=== PATIENT | female | born 1975 | race Asian ===

== ENCOUNTER 2018-01-17 07:12 | Emergency (ER) | payer BC ==
[2018-01-17] MEDS ORDERED: Aspirin 81 mg CHEW TAB* 81 MG TAB.CHEW ONE (07:20)
--- NOTE | 2018-01-17 07:21 | UC ---
Dizzy HPI HPI Summary: I, Thelma Castaneda, scribed for attending Adrianne Lopez MD. Pt is a 42 y/o F who presents to [facility] c/o sudden onset dizziness. Five miles into her bike ride this morning she started to feel like crap and felt like I was going to black out. Once symptoms began, she got off the bike and laid down. Reports that she felt dizzy and is unable to describe the sensation. She is unsure if dizziness is changed by closing her eyes. States that at onset her neck also became stiff. Additionally c/o slight nausea and numbness/tingling in the bilateral hands. Negative CP, sob, abd pain. No nausea, no diaphoresis, no back pain. Reports that she had a handful of cereal this morning prior to her bike ride which is typical and that 5 miles is routine and not uncharacteristically far for her. She had not just biked up a hill prior to onset of symptoms and she has not had any prior similar episodes. Had a stress test many years ago. Pt is on simvastatin. No anticoagulants. BG 172 upon arrival. PMHx HLD, depression, seasonal allergies. Negative PMHx HTN, DM, SD, CVA. - History Of Current Complaint Stated Complaint: DIZZY Time Seen by Provider: 01/17/18 07:15 Hx Obtained From: Patient Hx Last Menstrual Period: 20 days ago. Onset/Duration: Sudden Onset Character: Unable To Describe - "like I was going to black out" Aggravating Factor(s): Nothing Alleviating Factor(s): Nothing Associated Signs And Symptoms: Positive: Nausea - Allergies/Home Medications Allergies/Adverse Reactions: Allergies Allergy/AdvReac Type Severity Reaction Status Date / Time No Known Allergies Allergy Verified 12/18/16 09:26 PMH/Surg Hx/FS Hx/Imm Hx - Additional Past Medical History Additional PMH: NEGATIVE PMHx: SD, CVA, TIA, DM Endocrine History: Dyslipidemia Respiratory History: Other Other Respiratory History: Seasonal allergies Psychological History: Depression Other History Of: Negative For: HIV, Hepatitis B, Hepatitis C, Anticoagulant Therapy - Surgical History Surgical History: Yes Surgery Procedure, Year, and Place: fibroid myomectomy; wisdom teeth - Family History Known Family History: Positive: Cardiac Disease, Hypertension, Diabetes - Social History Alcohol Use: Occasionally Alcohol Amount: 1/week Substance Use Type: None Smoking Status (MU): Never Smoked Tobacco Have You Smoked in the Last Year: No Review of Systems Constitutional: Negative Skin: Negative Eyes: Negative ENT: Negative Respiratory: Negative Cardiovascular: Negative Gastrointestinal: Nausea Genitourinary: Negative Motor: Negative Neurovascular: Negative Musculoskeletal: Other: - Neck stiffness Neurological: Paresthesia - Bilateral hands, Other - Dizziness Psychological: Negative All Other Systems Reviewed And Are Negative: Yes - Comments Additional Review of Systems Comments: NEGATIVE: CP Physical Exam - Summary Physical Exam Summary: Vital Signs Reviewed: Yes A+Ox3, Eyes: Conjunctiva Clear, BUSHRA. EOM intact and full ENT: Hearing grossly normal TM x 2 clear, mmoist, uvula midline, no exudate, no erythema Neck: Positive: Supple Respiratory: Positive: No respiratory distress, No accessory muscle use + CTA throughout no w/r Cardiovascular: RRR nl s1, s2 no m/r CBT <2 sec abd soft + BS nt/nd no guarding, no distension Musculoskeletal Exam: CARLSON spontanesously Neurological: Positive: Alert, + sensation throughout. Pt with adrenaline tremors Psychological: Positive: Normal Response To Family, mild anxious, at bedside Skin: Positive: no rash, no ecchymosis Triage Information Reviewed: Yes Diagnostics - EKG EKG Comments: Done at 0711 ST elevations in the inferior leads with reciprocal T wave changes in aVL Cardiac Rate: NL - 69 bpm Cardiac Rhythm: Sinus: Normal Dizzy Course/Dx - Course Course Of Treatment: Patient medications reviewed this visit. Critical care time 30 minutes. Pt presents feeling lightheadedness while biking today. Pt denies chest pain, shortness of breath, diaphoresis. h/x hld and depression. Pt developed tremors in ext x 4 at - suspect related to adrenaline. Pt with acute ST changes on EKG. Verdi called, STEMI alert roper operator. Pt given ASA. IV placed. BG 173. 1 liter. pt's at bedside - updated and aware. pt's requested I contact Dr Ibarra - personal friend - Dr. Bedoya notified as Dr. Ibarra not assembler convertible top and office not open - Differential Dx/Diagnosis Provider Diagnoses: STEMI. dizziness - Physician Notifications Discussed Patient Care With: 07 - Dr. Monroy in ED; STEMI alert at hog operator Discharge - Sign-Out/Discharge Documenting (check all that apply): Patient Departure - Transfer to [facility] - Discharge Plan Condition: Good Disposition: TRANS HIGHER LVL OF CARE FAC - Billing Disposition and Condition Condition: GOOD Disposition: Trans Higher Lvl of Care Fac
[2018-01-17] MEDS ORDERED: Aspirin 81 mg CHEW TAB* 81 MG TAB.CHEW PO ONE (07:25)
[2018-01-17 07:49] VITALS: BP 97/56
[2018-01-17] MEDS ORDERED: Heparin 2 UNITS/ML IVPREMIX* 1,000 ML IV ONE (08:54)
== END 2018-01-17 07:40 | disposition short-term general hospital (02) ==
LOC: UCEAST 07:12 → CHICATH 07:57
DX: I21.3 ST elevation (STEMI) myocardial infarction of unspecified site (principal); R42 Dizziness and giddiness; E78.5 Hyperlipidemia, unspecified; F32.9 Major depressive disorder, single episode, unspecified
CPT/HCPCS: 93005; 99204; A9270-GY; G0463; J1644

== ENCOUNTER 2018-01-17 07:59 | Inpatient (IN) | payer BC ==
[~2018-01-17 07:59] MED LIST: Heparin 2 UNITS/ML IVPREMIX* 3,000 ML IV ONE; Iohexol 350 (CONTRAST) 200 ML MDV IV ONE; Lidocaine 1%* 5 ML VIAL ONE; nitroGLYCERIN DRIP* 25,000 MCG/250 ML BTL ONE
[2018-01-17] MEDS ORDERED: Midazolam* 1 MG/ML 10 ML VIAL (10 MG) ONE (08:23)
[2018-01-17] MEDS ORDERED: Lidocaine 1%* 5 ML VIAL ONE (08:28)
[2018-01-17 08:46] LABS: ABS Basophils 0.1 10^3/ul (0-0.2); ABS Eosinophils 0.1 10^3/ul (0-0.6); ABS Lymphocytes 1.8 10^3/ul (1.0-4.8); ABS Monocytes 0.7 10^3/ul (0-0.8); ABS Neutrophils 9.5 10^3/ul (1.5-7.7); ABS Nucleated RBC 0 10^3/ul; Eosinophil % 0.4 % (0-6); Hematocrit 45 % (35-47); Hemoglobin 15.1 g/dl (12.0-16.0); Lymphocyte % 14.6 % (25-47); Mean Corpuscular HGB Conc 34 g/dl (31-36); Mean Corpuscular Hemoglobin 30 pg (27-31); Mean Corpuscular Volume 87 fL (80-97); Mean Platelet Volume 7.7 um3 (7.4-10.4); Nucleated Red Blood Cells % 0; Platelet Count 231 10^3/ul (150-450); Red Blood Count 5.12 10^6/ul (4.00-5.40); Red Cell Distribution Width 14 % (10.5-15); White Blood Count 12.1 10^3/ul (3.5-10.8)
[2018-01-17] MEDS ORDERED: Nitroglycerin TAB 0.4 MG* 0.4 MG TAB SL PRN (09:00)
[2018-01-17] MEDS ORDERED: NS 0.9% 1000 ML* 500 ML IV SCH (09:00)
[2018-01-17] MEDS: Aspirin 81 mg CHEW TAB* 81 MG TAB.CHEW PO SCH (12:00)
--- NOTE | 2018-01-17 17:34 | HP ---
CC: Dr. Ilsa Dotson * ADMISSION HISTORY AND PHYSICAL: DATE OF ADMISSION: 01/17/18 CHIEF COMPLAINT: The patient with near syncopal sensation with mild neck discomfort and question of slight nauseousness with abnormal EKG raising question of acute ST-segment elevation inferior wall myocardial infarction. HISTORY OF PRESENT ILLNESS: The patient is a 42-year-old female with no history of prior cardiac problems other than a history of palpitation several years ago that was not found to have any significant abnormalities. I do not have that workup at the time of this dictation, but we will be reviewing that. Otherwise, she denies any history of myocardial infarction, congestive heart failure, significant heart rhythm disturbance. Today, she got up and went for a ride on her bicycle not doing overly exertional type activity and developed the onset of dizziness with a discomfort that she now states within the back of the neck. She stopped because she was not sure if she was going to pass out, but thought that she was getting close to passing out. She sat down, felt a little bit nauseous as well. She denied any profound shortness of breath with it. She called her significant other and they went to [facility] and an EKG was obtained that questioned J point elevation in the inferior leads with T wave inversion in AVL. As such, she was transferred over to the main center at [facility] as a STEMI alert. In the emergency room at [facility], she was not having any specific chest or throat discomfort. En route, the ambulance stated that her blood pressure was 56 and they initially could not get a line in her. They eventually got a line in and they gave her fluid. On arrival in the emergency room, her blood pressure was in the 125 range. The patient had cardiac risk factors include negative history of diabetes. Currently, she had gestational diabetes. No history of hypertension. She has a history of increased cholesterol. She does not smoke and she has a family history of both her father and her mother of according to her of myocardial infarction young in life, father with 61 and mother with 59. Her brother has high cholesterol. Of note, the patient does mention that with riding her bike today, the bike was adjusted and she believes she had to bend her neck up a little more. She also noticed some numbness in her hands that before she had attributed to her C4 and C5 compression fracture. PAST MEDICAL HISTORY: The patient states that she has a C4-C5 compression fracture that is fairly significant. PAST SURGICAL HISTORY: Includes fibroid surgery with a myomectomy. ALLERGIES: She has no known drug allergies. REVIEW OF SYSTEMS: Pertinent to proceeding to the cardiovascular laboratory. She denies any history of stroke, TIA. She denies any history of hematochezia, hematemesis, or hematuria. She has no significant history of renal dysfunction or contrast allergy. PHYSICAL EXAMINATION GENERAL: When I see reveals a pleasant female appearing nervous but in no acute distress. VITAL SIGNS: Blood pressure 125/90, pulse was 79 and regular. HEENT: Conjunctivae pink. Sclerae clear. NECK: Supple with no increased JVP. Carotid had good upstroke and volume without bruits. LUNGS: Reveal no accessory muscle usage. There is good excursion. Lungs were clear to A and P. HEART: Revealed no visible heaves, no palpable heaves or thrills. Normal S1, S2. No S3, S4, gallop. No significant systolic or diastolic murmur appreciated. ABDOMEN: Soft, nontender without organomegaly. EXTREMITIES: Without clubbing, cyanosis, or john pitting edema. Peripheral pulses were intact. There was no bruit in the right groin area. NEUROLOGIC: The patient is alert and oriented with normal mentation. MUSCULOSKELETAL: The patient moves all extremities appropriately. PSYCHOLOGICAL: The patient with normal affect. DIAGNOSTIC STUDIES/LAB DATA: A limited echocardiogram showed overall normal left ventricular contractility with a question of perhaps at most proximal portion of the inferior wall in only one review being hypokinetic and perhaps a small area of the low posterior lateral wall in only minimal views. In general , the overall EF was normal. Repeat EKG was performed and seemed to show less J point elevation. Labs were not sent as no blood had been drawn yet. ASSESSMENT AND PLAN: Overall assessment, Kymberly presents now with a dizzy, lightheaded sensation with neck discomfort with mild nauseous sensation with an abnormal EKG. Her limited echocardiogram is very subtle in nature. In general , comparing this EKG to a prior older EKG, the J point elevation is more prominent currently. Consideration, we discussed at length the issue about proceeding with a diagnostic cardiac catheterization to definitively rule out the presence of significant underlying coronary artery disease given her strong family history and hyperlipidemia and her presentation. She understood this and wished to proceed to get a definitive answer. The risks and benefits were explained to both her and her significant other and she understood them and wished to proceed. The patient received Brilinta therapy as well as a heparin bolus of 4000 units and a full aspirin. Further management will be made pending the results of the cardiac catheterization. Blood tests will be obtained at the time of the catheterization. [id number] #: [id number] MTDD
[2018-01-17] MEDS ORDERED: Cetirizine* 10 MG TAB PO ONE (19:06)
[2018-01-17] MEDS ORDERED: Montelukast Sodium TAB* 10 MG PO ONE (19:06)
[2018-01-17 21:07] LABS: Hematocrit 37 % (35-47); Hemoglobin 12.7 g/dl (12.0-16.0); Mean Corpuscular HGB Conc 34 g/dl (31-36); Mean Corpuscular Hemoglobin 30 pg (27-31); Mean Corpuscular Volume 87 fL (80-97); Mean Platelet Volume 7.5 um3 (7.4-10.4); Platelet Count 228 10^3/ul (150-450); Red Blood Count 4.25 10^6/ul (4.00-5.40); Red Cell Distribution Width 14 % (10.5-15)
[2018-01-17 21:23] LABS: INR 0.9 (0.77-1.02)
[2018-01-18 05:37] LABS: ABS Basophils 0 10^3/ul (0-0.2); ABS Eosinophils 0.1 10^3/ul (0-0.6); ABS Lymphocytes 1.8 10^3/ul (1.0-4.8); ABS Monocytes 0.6 10^3/ul (0-0.8); ABS Neutrophils 5.7 10^3/ul (1.5-7.7); ABS Nucleated RBC 0 10^3/ul; Eosinophil % 1.4 % (0-6); Hematocrit 39 % (35-47); Hemoglobin 13.1 g/dl (12.0-16.0); Lymphocyte % 21.6 % (25-47); Mean Corpuscular HGB Conc 34 g/dl (31-36); Mean Corpuscular Hemoglobin 29 pg (27-31); Mean Corpuscular Volume 87 fL (80-97); Mean Platelet Volume 7.5 um3 (7.4-10.4); Nucleated Red Blood Cells % 0; Platelet Count 217 10^3/ul (150-450); Red Blood Count 4.48 10^6/ul (4.00-5.40); Red Cell Distribution Width 14 % (10.5-15); White Blood Count 8.2 10^3/ul (3.5-10.8)
[2018-01-18 05:53] LABS: EGFR Non-African American 82.2 (>60)
[2018-01-18] MEDS ORDERED: Albuterol HFA INHALER* 8 gm MDI INH PRN (06:06)
[2018-01-18] MEDS ORDERED: Sertraline* 100 MG TAB PO SCH (09:00)
[2018-01-18] MEDS ORDERED: Montelukast Sodium TAB* 10 MG PO SCH (09:00)
[2018-01-18] MEDS ORDERED: Atorvastatin* 20 MG TAB PO SCH (09:00)
[2018-01-18] MEDS ORDERED: BuPROPion XL* 300 MG TAB.XL PO SCH (09:00)
[2018-01-18] MEDS: Aspirin 81 mg CHEW TAB* 81 MG TAB.CHEW PO SCH (09:55)
--- NOTE | 2018-01-18 10:11 | ECHO ---
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 The study is technically limited due to patient body habitus. Left Ventricle: The left ventricular chamber size is normal. Mild concentric left ventricular hypertrophy is observed. Global left ventricular wall motion and contractility are within normal limits. There is normal left ventricular systolic function. The estimated ejection fraction is 55-60%. Normal left ventricular diastolic filling is observed. Left Atrium: The left atrial chamber size is normal. Right Ventricle: The right ventricular cavity size is normal. The right ventricular global systolic function is normal. Right Atrium: The right atrial cavity size is normal. Aortic Valve: The aortic valve is trileaflet. The aortic valve leaflets are mildly thickened. There is no evidence of aortic regurgitation. There is no evidence of aortic stenosis. Mitral Valve: The mitral valve leaflets are mildly thickened. There is a trace of mitral regurgitation. There is no evidence of mitral stenosis. Tricuspid Valve: The tricuspid valve leaflets are normal. There is trace tricuspid regurgitation. Unable to estimate the right ventricular systolic pressure. There is no tricuspid stenosis. Pulmonic Valve: The pulmonic valve appears normal. There is mild pulmonic regurgitation. There is no pulmonic stenosis. Pericardium: There is no significant pericardial effusion. A pericardial fat pad is visualized. Aorta: There is no dilatation of the ascending aorta. There is no dilatation of the aortic arch. There is no dilation of the aortic root. Pulmonary Artery: The main pulmonary artery appears normal. Venous: The inferior vena cava appears normal in size. There is less than 50% respiratory change in the inferior vena cava dimension. Conclusions Mild concentric left ventricular hypertrophy is observed. Global left ventricular wall motion and contractility are within normal limits. The estimated ejection fraction is 55-60%. Normal left ventricular diastolic filling is observed. No significant valvular disease: There is a trace of mitral regurgitation. There is trace tricuspid regurgitation. There is mild pulmonic regurgitation. No reports of prior studies are ffered for comparison. Measurements Name Value Normal Range RVIDd (AP) 2D 2.7 cm (0.9 - 2.6) RVDdMajor (2D) 3.3 cm (2.2 - 4.4) RAd ISD 4CH 4.4 cm (3.4 - 4.9) RA (A4C)W 3.1 cm (2.9 - 4.6) IVSd (2D) 1.1 cm (0.6 - 1) LVPWd (2D) 1.1 cm (0.6 - 1) LVIDd (2D) 4.3 cm (3.6 - 5.4) LVIDs (2D) 2.7 cm - LV FS (2D) 37 % (25 - 45) Aortic Annulus 1.9 cm (1.4 - 2.6) Ao root diameter (2D) 2.9 cm (2.1 - 3.5) Ascending Ao 2.7 cm (2.1 - 3.4) Aortic arch 2.3 cm (1.8 - 3.4) LA dimension (AP) 2D 3.5 cm (2.3 - 3.8) LAd ISD 4CH 5.1 cm (2.9 - 5.3) LA ISD 4CH W 3.5 cm (2.5 - 4.5) Name Value Normal Range LA ESV SP 4CH (A/L) 43 ml - LA ESV SP 2CH (A/L) 34 ml - LA ESV BP (A/L) 40 ml - LA ESV BP (A/L) index 21.8 ml/m2 - LA ESV SP 4CH (MOD) 39 ml - LA ESV SP 2CH (MOD) 32 ml - Name Value Normal Range MV E-wave Vmax 0.89 m/sec - MV deceleration time 139 msec - MV A-wave Vmax 0.63 m/sec - MV E:A ratio 1.4 ratio - LV septal e' Vmax 0.1 m/sec - LV lateral e' Vmax 0.13 m/sec - LV E:e' septal ratio 8.9 ratio - LV E:e' lateral ratio 6.8 ratio - Name Value Normal Range AV Vmax 1.4 m/sec - AV VTI 30 cm - AV peak gradient 8 mmHg - AV mean gradient 4.8 mmHg - LVOT Vmax 1.3 m/sec - LVOT VTI 30 cm - LVOT peak gradient 6.5 mmHg - LVOT mean gradient 4.2 mmHg - INNA Vmax 0.87 m/sec - Name Value Normal Range IVC diameter 1.9 cm - Name Value Normal Range PV Vmax 0.95 m/sec -
[2018-01-18] MEDS ORDERED: Diltiazem CD CAP* 120 MG PO SCH (11:00)
[2018-01-18 16:18] VITALS: BP 132/81
--- NOTE | 2018-01-20 09:20 | CATH ---
CC: Dr. Ilsa Dotson; Dr. Júnior Ibarra CARDIAC CATHETERIZATION REPORT: DATE OF PROCEDURE: 01/17/18 INDICATIONS FOR PROCEDURE: The patient presents with abnormal EKG, raising question of acute ST segment inferior elevation, more prominent than on other EKG findings with episode of severe dizziness, lightheadedness, and back of neck discomfort. PROCEDURE: Coronary arteriography, left heart catheterization, left ventriculography. EQUIPMENT UTILIZED: 1. Right femoral sheath, an 11 cm 5-Malawian sheath. 2. Diagnostic coronary catheters, a 5-Malawian FL4 and 5-Malawian FR4 catheter. 3. Left heart catheterization catheter, a 5-Malawian angled pigtail catheter. 4. Guidewire with 0.035 radial J-tipped guidewire. MEDICATIONS GIVEN: 1. Versed 1 mg. 2. Nitroglycerin 100 mcg intracoronary. DESCRIPTION OF PROCEDURE: The patient was interviewed in the emergency room where risks and benefits were explained. She understood them and wished to proceed. She was brought to the cardiovascular laboratory where a formal time- out was performed. The right groin area was anesthetized with 1% lidocaine. The right femoral artery was cannulated and a sheath was placed. The patient had already received in the emergency room 4000 units of heparin, 325 of aspirin and 180 mg of Brilinta. Coronary arteriography was performed followed by left heart catheterization, left ventriculography was performed, and a total of 24 cc of Omnipaque dye at a rate of 12 cc was utilized. The catheter was then pulled back across the aortic valve to recheck gradient. At the end of the case , a manual injection was made into the right femoral sheath to assess eligibility to utilize the closure device. It was decided to leave the sheath sutured in place, stop the heparin therapy, and pull the sheath when the ACT was in the appropriate range. The patient was stable, transferred to the intensive care unit. The total contrast used was 100 cc of Omnipaque dye. The radiation exposure included 7 minutes of fluoro time. The air kerma radiation was 934 mGy. The DAP radiation was 6250 microgray/m2. RESULTS: HEMODYNAMIC DATA: Left heart catheterization revealed central aortic pressure of 126/82 with a mean of 103. Left ventricular pressure 128 over left ventricular end- diastolic pressure of 9. LEFT VENTRICULOGRAPHY: Performed in the LEIGH projection revealed hyperdynamic left ventricular systolic function with an overall ejection fraction in excess of 65%. There was no significant mitral regurgitation. CORONARY ARTERIOGRAPHY: A. Left coronary artery: 1. Left main - Somewhat long in nature with no significant obstruction seen. 2. Left anterior descending artery - The left anterior descending artery supplied a moderate size first diagonal branch followed by several thinner diagonal branches. There was no significant obstruction seen throughout the course of the vessel. 3. Circumflex artery - a nondominant vessel, supplying a somewhat smaller caliber bifurcating first obtuse marginal branch, a very thin short second obtuse marginal branch, and 3 further low lying obtuse marginal branches ending in a bifurcating posterior left ventricular branch. There was corkscrew appearance to all of the vessels raising the question of left ventricular hypertrophy. B. Right coronary artery - a dominant vessel supplying the PDA and several very thin posterior left ventricular branches; the last of which was very thin in nature. There was a proximal area of spasm that developed with the most significant narrowing of 45%. With intracoronary nitroglycerin, there was significant relief of it with a minimal of 20% residual. As mentioned earlier, the most distal portion of the vessel had very thin branches of the posterior left ventricular branch. The right coronary artery PDA and posterior left ventricular branches only supplied the proximal to mid inferior wall with a wraparound LAD supplying the apex and distal inferior wall. OVERALL ASSESSMENT: No significant obstructive coronary artery disease with catheter-induced spasm of the proximal right coronary artery, relieved with intracoronary nitroglycerin. Well-preserved left ventricular systolic function, borderline hyperdynamic in nature. There is no suggestive evidence to account for the question of a possible acute ST segment elevation inferior wall myocardial infarction. The patient does have a history of hyperlipidemia and this will be followed up with family doctor given the small distal vessels that she has in multiple of her arteries. The decision of whether or not to treat with antispasm medications could be raised, although I am not 100% convinced that was the primary cause of this episode. [id number]/[facility] #: [id number] VITALY
--- NOTE | 2018-01-20 22:31 | DS ---
DISCHARGE SUMMARY: CC: Ilsa Dotson MD, Júnior Ibarra MD DATE OF ADMISSION: 01/17/18 DATE OF DISCHARGE: 01/20/18 FINAL DIAGNOSES: 1. Abnormal cardiac enzymes and dizzy spell. 2. Abnormal EKG. 3. Possible coronary artery spasm. 4. Degenerative cervical spine disease. 5. Hyperlipidemia. 6. She has a history of depression. 7. She has a history of bronchospastic lung disease. 8. History of palpitations (saw Dr. Ibarra in the past). HISTORY OF PRESENT ILLNESS AND HOSPITAL COURSE: The patient is a 42-year-old female without any known prior cardiac history. Please refer to her H and P for complete details. She presented to [facility] and a STEMI alert was called by the emergency room physician. She had come in with dizziness while riding her bicycle and feeling like she was almost passing out with ST segment elevation noted in the inferior leads. She was sent over from [facility] to [facility]. There was some question that in the ambulance her blood pressure was low. By the time she got here, they eventually got a line and gave her some fluids and blood pressure initially was 125. In the emergency room, the EKG seemed to have improvement of symptoms and as such, she was given heparin bolus of 4000 units, Brilinta and full dose aspirin. I saw her in consultation and at that point, she was asymptomatic without any specific chest, throat, jaw or discomfort, but she said she had complained about neck discomfort. I explained that I was not necessarily convinced that she had definitive underlying coronary artery disease, but a diagnostic cardiac catheterization would answer that issue. A limited echocardiogram was performed in the emergency room with a question of perhaps a subtle abnormality to the inferior wall that we could not rule out focal wall motion abnormality. She was brought to the cardiovascular laboratory and had no significant fixed coronary artery disease. Of note, the right coronary catheter did induce some degree of spasm to the proximal right coronary artery, but it did not produce a critical lesion greater than 45% to 50% and it had significant improvement with intracoronary nitroglycerin consistent with coronary artery spasm. Of note, talking to her further after the cardiac catheterization, she then explained that she had degenerative neck discomfort in her cervical spine in C4 and C5 and actually described that when she was riding the bike, she had numbness in both arms. She stated that she recently had her bicycle adjusted and I asked her whether or not that made her to have lift her head up higher and she said yes she had to bend her neck up higher when she was riding the bicycle. With that in mind, I became very suspicious for the possibility of perhaps this was her cervical disease. She stated that she had specialists in [facility], who are watching this, and she preferred to get any further evaluation done there. I explained the importance of seeking that medical attention within the next week to 2 weeks when she left the hospital. I had placed her on Cardizem CD in case there was any spasm component to this; however , her cardiac enzymes were negative during the hospital course. A formal echocardiogram was performed because of right axis deviation and clockwise progression to the R-wave and the precordial leads and that revealed a right ventricle of normal size and function, left ventricle had normal size with mild concentric left ventricular hypertrophy with an estimated ejection fraction of 55% to 60%. There was no significant valvular disease. PHYSICAL EXAMINATION: On the day of discharge, the patient's blood pressure was found to be 132/81 with a pulse in the 70s to 80s, respirations were in the low 20s, O2 saturation was 97% to 100% on room air. Neck was supple. There was no increased JVP. Carotids had good upstroke and volume without bruits. Conjunctivae were pink. Sclerae were clear. Lungs revealed no accessory muscle usage. There was good excursion. There were no active rales, rhonchi, or wheezes. Heart revealed no visible heaves. No palpable heaves or thrills. Normal S1, S2. No significant S3 or S4 gallop. No significant systolic or diastolic murmur was appreciated. Abdomen was soft, nontender without organomegaly. Extremities were without clubbing, cyanosis, or significant pitting edema. Neuro: The patient alert, oriented with normal mentation. Musculoskeletal: The patient with normal gait. Psychiatric: The patient with normal affect. The right groin area was well- healed with no hematoma or tenderness, no bruit, and good distal pulses were present. DISCHARGE MEDICATIONS: Included: 1. Albuterol inhaler. 2. Aspirin 81 mg a day. 3. Diltiazem 120 mg a day. 4. Nitroglycerin p.r.n. 5. Singulair 10 mg once a day. 6. Sertraline 100 mg daily. 7. Bupropion 300 mg daily. 8. Simvastatin 40 mg daily. 9. Multi-Kimi 1 a day. 10. Tramadol 50 mg a day. She was told to stop her naproxen. FOLLOWUP: The patient will be seeing Dr. Ibarra per her request because she has seen him in the past, on 02/01/18 at 12:15 p.m. She is to bring all her medication bottles with her. She will be following up with her neurosurgeon in [facility] within the next week to two weeks for concern over progression in Cspine disease as possible cause of her presentation. [id number]/CPS #: [id number] MTDD
== END 2018-01-18 18:00 | disposition home or self-care (01) | DRG 192 ==
LOC: CHICATH 07:59 → ICU 08:58
PROVIDERS: ADMIT Internal Medicine Cardiovascular Disease; ATTEND Internal Medicine Cardiovascular Disease
PROC: B2111ZZ Fluoroscopy of Multiple Coronary Arteries using Low Osmolar Contrast (ICD-10-PCS; 2018-01-17)
PROC: B2151ZZ Fluoroscopy of Left Heart using Low Osmolar Contrast (ICD-10-PCS; 2018-01-17)
PROC: 4A023N7 Measurement of Cardiac Sampling and Pressure, Left Heart, Percutaneous Approach (ICD-10-PCS; principal; 2018-01-17 07:30)
DX: I20.1 Angina pectoris with documented spasm (principal); E78.5 Hyperlipidemia, unspecified; J45.909 Unspecified asthma, uncomplicated; M19.90 Unspecified osteoarthritis, unspecified site; F32.9 Major depressive disorder, single episode, unspecified; F41.9 Anxiety disorder, unspecified; R00.0 Tachycardia, unspecified; R94.31 Abnormal electrocardiogram [ECG] [EKG]; I95.9 Hypotension, unspecified; M50.321 Other cervical disc degeneration at C4-C5 level; Z79.82 Long term (current) use of aspirin; Z79.51 Long term (current) use of inhaled steroids; Z83.3 Family history of diabetes mellitus; Z72.89 Other problems related to lifestyle; Z82.49 Family history of ischemic heart disease and other diseases of the circulatory system
CPT/HCPCS: 36415; 80048; 80053; 80061; 82550; 82553; 83605; 83721; 83874; 83880; 84484; 85025; 85027; 85347; 85610; 85730; 87641; 93005; 93306; 94640; 99204; 99285; A9270-GY; C1887; G0463; J1644; J2250

== ENCOUNTER 2018-01-20 06:31 | Observation (INO) | payer BC ==
--- NOTE | 2018-01-20 07:38 | ED ---
Complex/Multi-Sys Presentation - HPI Summary HPI Summary: This is federica Hernandez documenting for attending Edward Monroy MD. This patient is a 42 year old F presenting to ED with a chief complaint of high BP since yesterday associated with dizziness and lightheadedness. This patient was here in the ED on 01/17/18 with a STEMI; had negative heart cath. She was discharged the following evening with BP of about 130/90. She was given instructions to f/u with Dr. Ibarra and has an appt in 2 weeks. Yesterday, she measured her BP and it was 150/100. The patient rates the pain 0/10 in severity. Symptoms aggravated by moving her head. Symptoms alleviated by nothing. Patient reports light-headedness, intermittent L-sided SHIN, palpitations , and SOB and tightness in chest this morning when she woke up. Patient denies current CP, fever, chills, abdominal pain, and N/V. No PMHx of HTN. - History Of Current Complaint Chief Complaint: EDChestPainROMI Time Seen by Provider: 01/20/18 07:20 Hx Obtained From: Patient Onset/Duration: Sudden Onset, Lasting Days - since yesterday, Still Present Timing: Constant - constant dizziness, intermittent SHIN, Days - since yesterday Severity Currently: None Aggravating Factor(s): moving her head aggravates the light-headedness Alleviating Factor(s): nothing Associated Signs And Symptoms: Positive: Other - Patient reports high BP, light- headedness, intermittent L-sided SHIN, palpitations, and SOB and tightness in chest this morning when she woke up. Patient denies current CP, fever, chills, abdominal pain, and N/V. - Allergies/Home Medications Allergies/Adverse Reactions: Allergies Allergy/AdvReac Type Severity Reaction Status Date / Time No Known Allergies Allergy Verified 12/18/16 09:26 PMH/Surg Hx/FS Hx/Imm Hx Endocrine/Hematology History: Denies: Hx Anticoagulant Therapy, Hx Diabetes, Hx Thyroid Disease Cardiovascular History: Reports: Hx Hypercholesterolemia Denies: Hx Congestive Heart Failure, Hx Deep Vein Thrombosis, Hx Hypertension , Hx Myocardial Infarction, Hx Pacemaker/ICD Respiratory History: Reports: Hx Asthma Denies: Hx Chronic Obstructive Pulmonary Disease (COPD), Hx Lung Cancer, Hx Pneumonia, Hx Pulmonary Embolism GI History: Denies: Hx Gall Bladder Disease, Hx Gastrointestinal Bleed, Hx Ulcer, Hx Urosepsis History: Denies: Hx Kidney Stones, Hx Renal Disease Musculoskeletal History: Reports: Hx Arthritis, Hx Back Problems, Other Musculoskeletal History - numbness/tingling Sensory History: Reports: Hx Contacts or Glasses Denies: Hx Hearing Aid Opthamlomology History: Reports: Hx Contacts or Glasses Neurological History: Reports: Other Neuro Impairments/Disorders - pain clinic patient, C4/C5 compression Denies: Hx Dementia, Hx Migraine, Hx Seizures, Hx Transient Ischemic Attacks (TIA) Psychiatric History: Reports: Hx Anxiety, Hx Depression Denies: Hx Panic Disorder, Hx Schizophrenia, Hx Bipolar Disorder - Cancer History Hx Chemotherapy: No Hx Radiation Therapy: No - Surgical History Surgery Procedure, Year, and Place: fibroid myomectomy; wisdom teeth Infectious Disease History: No Infectious Disease History: Denies: Hx Clostridium Difficile, Hx Hepatitis, Hx Human Immunodeficiency Virus (HIV), Hx of Known/Suspected MRSA, Hx Shingles, Hx Tuberculosis, Hx Known/ Suspected VRE, Hx Known/Suspected VRSA, History Other Infectious Disease, Traveled Outside the [place] in Last 30 Days - Family History Known Family History: Positive: Cardiac Disease, Hypertension, Diabetes - Social History Alcohol Use: None Alcohol Amount: 1/week Substance Use Type: Reports: None Smoking Status (MU): Never Smoked Tobacco Have You Smoked in the Last Year: No Review of Systems Negative: Fever, Chills Positive: Palpitations, Other - tightness in chest this morning when she woke up , high BP. Negative: Chest Pain - denies current chest pain Positive: Shortness Of Breath - this morning when she wake up Negative: Abdominal Pain, Vomiting, Nausea Neurological: Other - light-headedness Positive: Headache - intermittent, L-sided All Other Systems Reviewed And Are Negative: Yes Physical Exam - Summary Physical Exam Summary: GENERAL: Patient is a well-developed and nourished FEMALE who is lying comfortable in the stretcher. Patient is not in any acute respiratory distress. HEAD AND FACE: Normocephalic EYES: PERRLA, EOMI x 2. EARS: Hearing grossly intact. MOUTH: Oropharynx within normal limits. NECK: Supple, trachea is midline, no adenopathy, no JVD, no carotid bruit. CHEST: Symmetric, no tenderness at palpation LUNGS: Clear to auscultation bilaterally. No wheezing or crackles. CVS: Regular rate and rhythm, S1 and S2 present, no murmurs or gallops appreciated. ABDOMEN: Soft, non-tender. Bowel sounds are normal. No abdominal abnormal pulsations. EXTREMITIES: Full ROM in all major joints, no edema, no cyanosis or clubbing. NEURO: Alert and oriented x 3. No acute neurological deficits. Speech is normal and follows commands. CN 2-12 grossly intact SKIN: Dry and warm GCS 15 Triage Information Reviewed: Yes Vital Signs On Initial Exam: Initial Vitals Resp 94 01/20/18 06:37 Vital Signs Reviewed: Yes Diagnostics - Vital Signs Vital Signs Temp Pulse Resp BP Pulse Ox 01/20/18 07:08 83 14 129/83 98 01/20/18 07:00 75 22 97 01/20/18 06:52 81 17 145/94 100 01/20/18 06:44 82 14 130/96 99 01/20/18 06:38 97.9 F 82 13 160/89 99 01/20/18 06:37 94 - Laboratory Result Diagrams: 01/20/18 07:58 01/20/18 07:58 Lab Statement: Any lab studies that have been ordered have been reviewed, and results considered in the medical decision making process. - CT C-spine CT CT Interpretation Completed By: Radiologist - No evidence for traumatic cervical spine injury. Progression of degenerative spondylosis compared with the 2014 exam with associated worsening acquired central canal and foraminal stenosis as described level by level. ED physician has reviewed this radiology report. Brain CT CT Interpretation Completed By: Radiologist - Negative unenhanced head CT. ED physician has reviewed this radiology report. - EKG 0649 Cardiac Rate: NL - 86 BPM EKG Rhythm: Sinus Rhythm EKG Interpretation: R axis deviation, inverted T wave in anterior leads 0800 Cardiac Rate: NL - 71 BPM EKG Rhythm: Sinus Rhythm EKG Interpretation: Q wave in inferior leads Re-Evaluation - Re-Evaluation First Eval Re-Evaluation Time: 10:05 Comment: The patient is still feeling woozy. She knows about severe C-spine stenosis with spinal cord compression. She followed up with a neurologist here who wanted to do surgery, but got a second opinion in [facility] who said they will watch it. Second Eval Re-Evaluation Time: 11:43 Comment: Discussed with the patient that Dr. Castro will see her in the ED. Complex Multi-Symp Course/Dx Assessment/Plan: The patient is a 42 year old F presenting to ED today with a chief complaint of high BP since stated with dizziness and lightheadedness yesterday. Patient was brought in as a STEMI alert 2 days ago with subsequent cardiac catheter resulted and no intervention. Patient has a known history of severe cervical canal stenosis with spinal cord compression that's being followed in [facility]. Her workup including CT of head and neck is remarkable for severe C-spine stenosis. Upon re-evaluation, patient was still persistently dizzy and so I consulted neurology. Patient seen and evaluated at the bedside by who recommended admission and thinks the patient's symptoms scan because by spinal cord compression and recommended admission for MRI. Discussed with Dr. Nicole who accepts the patient for admission. Patient is agreeable with this plan. - Diagnoses Differential Diagnoses/HQI/PQRI: Other - dizziness Provider Diagnoses: Dizziness - Physician Notifications Discussed Care Of Patient With: Melanie Castro Time Discussed With Above Provider: 11:41 Instructed by Provider To: Other - Consulted Dr. Castro at 1141 who will see the patient in the ED. Consulted Dr. Castro at 1258 in the ED who recommends admisssion for further workup, specifically a C-spine MRI. She thinks it may be because of ischemia to the spinal cord. Consulted Dr. Nicole at 1304 who accepts the patient for admission. Discharge - Sign-Out/Discharge Documenting (check all that apply): Patient Departure - Discharge Plan Condition: Stable Disposition: ADMITTED TO [facility] Referrals: Ilsa Dotson MD [Primary Care Provider] - - Billing Disposition and Condition Condition: STABLE Disposition: Admitted to [facility]
[2018-01-20] MEDS ORDERED: NS 0.9% 1000 ML* 1,000 ML IV ONE (07:49)
[2018-01-20] MEDS ORDERED: Meclizine TAB* 12.5 MG PO ONE (07:51)
[2018-01-20] MEDS ORDERED: Ondansetron INJ* 2 MG/ML VIAL IV ONE (07:51)
[2018-01-20 08:05] LABS: ABS Basophils 0 10^3/ul (0-0.2); ABS Eosinophils 0.1 10^3/ul (0-0.6); ABS Lymphocytes 1.2 10^3/ul (1.0-4.8); ABS Monocytes 0.5 10^3/ul (0-0.8); ABS Neutrophils 3.9 10^3/ul (1.5-7.7); ABS Nucleated RBC 0 10^3/ul; Eosinophil % 1.5 % (0-6); Hematocrit 42 % (35-47); Hemoglobin 14.2 g/dl (12.0-16.0); Lymphocyte % 21.6 % (25-47); Mean Corpuscular HGB Conc 34 g/dl (31-36); Mean Corpuscular Hemoglobin 30 pg (27-31); Mean Corpuscular Volume 87 fL (80-97); Mean Platelet Volume 7.2 um3 (7.4-10.4); Nucleated Red Blood Cells % 0.1; Platelet Count 230 10^3/ul (150-450); Red Blood Count 4.81 10^6/ul (4.00-5.40); Red Cell Distribution Width 14 % (10.5-15); White Blood Count 5.7 10^3/ul (3.5-10.8)
[2018-01-20 08:14] LABS: INR 0.84 (0.77-1.02)
[2018-01-20 08:23] LABS: EGFR Non-African American 79.8 (>60)
[2018-01-20 08:46] LABS: Urine Appearance Cloudy; Urine Blood 2+ (Negative); Urine Color Yellow; Urine Ketones Negative (Negative); Urine Protein Negative (Negative); Urine Red Blood Cell Trace(0-2/hpf) (Absent); Urine Specific Gravity 1.002 (1.010-1.030); Urine Urobilinogen Negative (Negative); Urine White Blood Cell Trace(0-5/hpf) (Absent)
--- NOTE | 2018-01-20 10:49 | RAD ---
Indication: Dizziness, paresthesias. Headaches. Comparison: July 25, 2015 Technique: Noncontrast CT vertex of skull through foramen magnum. Report: The sulci, ventricles, and basal cisterns are normal for age. Amanda matter white matter differentiation is preserved without evidence for edema. No intra or extra axial hemorrhage, mass, or fluid collection detected. Unremarkable partially visualized orbital contents. Unremarkable calvarium and skull base. Unremarkable scalp. The visualized paranasal sinuses and mastoid air spaces are clear. IMPRESSION: #. Negative unenhanced head CT.
--- NOTE | 2018-01-20 11:00 | RAD ---
INDICATION: Dizziness and paresthesias. COMPARISON: August 06, 2013 CT myelogram. TECHNIQUE: Multidetector CT images foramen magnum to lung apices without contrast. Multiplanar reformation. REPORT: Mild kyphosis of the cervical spine increased over the 2014 exam. Negative for facet subluxation at any level. Negative for cervical vertebral body or posterior element fracture. Negative for paravertebral hematoma. Multilevel degenerative spondylosis and less prominent facet joint osteoarthritis. Disc space narrowing is mild at C2-C3, C3-C4, moderate at C4-C5, moderately severe at C5-C6, and moderate at C6-C7 with interval worsening. At C3-C4 dorsal disc osteophyte complex results in moderate impression on the ventral margin of the thecal sac with interval progression. At C4-C5 dorsal disc osteophyte complex results in mild impression on the ventral margin of the thecal sac without significant change. Uncinate process spurring results in moderate RIGHT and mild LEFT foraminal stenosis with interval worsening. At C5-C6 dorsal disc osteophyte complex results in mild impression on the ventral margin of the thecal sac with mild progression. Uncinate process spurring results in moderate RIGHT and mild LEFT foraminal stenosis without significant change. At C6-C7 dorsal disc osteophyte complex results in mild impression on the ventral margin of the thecal sac without significant change. Negative for significant foraminal stenosis. IMPRESSION: #. No evidence for traumatic cervical spine injury. #. Progression of degenerative spondylosis compared with the 2014 exam with associated worsening acquired central canal and foraminal stenosis as described level by level.
[2018-01-20] MEDS ORDERED: Albuterol 2.5 MG/3 ML NEB.SOL* (0.083%) INH PRN (13:57)
[2018-01-20] MEDS ORDERED: Acetaminophen TAB* 325 MG PO PRN (13:57)
[2018-01-20] MEDS ORDERED: Magnesium Hydroxide LIQ* 30 ML UDC PO PRN (13:57)
[2018-01-20] MEDS ORDERED: Ondansetron INJ* 2 MG/ML VIAL IV PRN (13:57)
[2018-01-20] MEDS ORDERED: oxyCODONE/Acetamin 5/325 MG* TAB PO PRN (13:57)
[2018-01-20] MEDS ORDERED: Morphine VIAL* 10 MG/ML 1 ML VIAL IV PRN (13:57)
[2018-01-20] MEDS ORDERED: Al Hydrox/Mg Hydrox/Simet LIQ* 30 ML UDC PO PRN (13:57)
[2018-01-20] MEDS ORDERED: Albuterol HFA INHALER* 8 gm MDI INH PRN (14:02)
[2018-01-20] MEDS ORDERED: traMADol TAB* 50 MG PO PRN (14:02)
[2018-01-20] MEDS ORDERED: Nitroglycerin TAB 0.4 MG* 0.4 MG TAB SL PRN (14:02)
[2018-01-20] MEDS ORDERED: Meclizine TAB* 12.5 MG PO PRN (14:05)
[2018-01-20] MEDS: Aspirin EC TAB* 81 MG TAB.EC PO SCH (17:37)
[2018-01-20] MEDS: Sertraline* 100 MG TAB PO SCH (17:39)
[2018-01-20] MEDS: Montelukast Sodium TAB* 10 MG PO SCH (17:39)
[2018-01-20] MEDS: BuPROPion XL* 300 MG TAB.XL PO SCH (18:14)
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
[2018-01-20] MEDS: Atorvastatin* 20 MG TAB PO SCH (21:49)
[2018-01-21 07:46] LABS: ABS Basophils 0 10^3/ul (0-0.2); ABS Eosinophils 0.1 10^3/ul (0-0.6); ABS Monocytes 0.5 10^3/ul (0-0.8); ABS Neutrophils 4.2 10^3/ul (1.5-7.7); ABS Nucleated RBC 0 10^3/ul; Eosinophil % 1.7 % (0-6); Hematocrit 42 % (35-47); Hemoglobin 14.4 g/dl (12.0-16.0); Lymphocyte % 29.3 % (25-47); Mean Corpuscular HGB Conc 34 g/dl (31-36); Mean Corpuscular Hemoglobin 30 pg (27-31); Mean Corpuscular Volume 87 fL (80-97); Mean Platelet Volume 7.4 um3 (7.4-10.4); Nucleated Red Blood Cells % 0.3; Platelet Count 241 10^3/ul (150-450); Red Blood Count 4.87 10^6/ul (4.00-5.40); Red Cell Distribution Width 14 % (10.5-15); White Blood Count 6.8 10^3/ul (3.5-10.8)
[2018-01-21 08:02] LABS: EGFR Non-African American 77.5 (>60)
[2018-01-21] MEDS: Montelukast Sodium TAB* 10 MG PO SCH (08:27)
[2018-01-21] MEDS: Aspirin EC TAB* 81 MG TAB.EC PO SCH (08:27)
[2018-01-21] MEDS: Atorvastatin* 20 MG TAB PO SCH (08:27)
[2018-01-21] MEDS: BuPROPion XL* 300 MG TAB.XL PO SCH (08:27)
[2018-01-21] MEDS: Sertraline* 100 MG TAB PO SCH (08:27)
--- NOTE | 2018-01-21 11:42 | RAD ---
HISTORY: Neck pain, numbness COMPARISONS: October 10, 2016, CT dated January 20, 2018 TECHNIQUE: The following sequences were obtained of the cervical spine: Sagittal T1- and T2-weighted images, sagittal STIR images, axial T2 and gradient echo images. FINDINGS: BRAIN AND SPINAL CORD: The visualized spinal cord is normal in caliber, position, and signal intensity. The visualized portion of the brain is unremarkable. The cerebellar tonsils are normal in position. ALIGNMENT: There is straightening with reversal of the normal cervical lordosis. VERTEBRAL BODIES: There is multilevel anterolateral marginal osteophyte formation. JOINTS: There is no subluxation or dislocation. MUSCULATURE: Unremarkable INTERVERTEBRAL DISCS: There is diffuse loss of intervertebral disc height and T2 signal throughout the spine. AXIAL IMAGES: C2-C3: There is no disc herniation, spinal stenosis, or neuroforaminal narrowing. C3-C4: There is a broad-based disc osteophyte complex with a calcified central disc protrusion versus posterior osteophyte measuring 0.4 cm in depth. This is stable from the previous examinations. There is mild to moderate narrowing of the central canal. There is mild bilateral neuroforaminal narrowing. C4-C5: There is a broad-based disc osteophyte complex with bilateral uncovertebral and facet hypertrophy. There is moderate left and severe right neural foraminal narrowing. There is moderate narrowing of the central canal. C5-C6: There is a broad-based disc osteophyte complex with bilateral uncovertebral and facet hypertrophy. There is a small central posterior osteophyte versus calcified disc protrusion. There is severe right and moderate left neural foraminal area. There is moderate narrowing of the central canal. C6-C7: There is a broad-based disc osteophyte complex with bilateral uncovertebral and facet hypertrophy. There is moderate bilateral neural foraminal narrowing. There is mild narrowing of the central canal. C7-T1: There is no disc herniation, spinal stenosis, or neuroforaminal narrowing. SOFT TISSUES: The visualized soft tissues of the neck are unremarkable. OTHER: None. IMPRESSION: 1. DEGENERATIVE DISC DISEASE AND OSTEOARTHRITIS. 2. THERE IS A STABLE CENTRAL POSTERIOR OSTEOPHYTE VERSUS CALCIFIC DISC PROTRUSION AT C3-C4. 3. THERE IS MODERATE NARROWING OF THE CENTRAL CANAL AT THE C4-C5 AND C5-C6 AND TO A LESSER EXTENT AT C3-C4 AND C6-C7. 4. THERE IS MULTILEVEL NEURAL FORAMINAL NARROWING DESCRIBED ABOVE
--- NOTE | 2018-01-21 13:17 | CONSULT ---
Consult Consult: Reviewed the MRI C spine results with the patient. She has multi-level degenerative disc disease in the cervical spine worst at C3-4. There has been a progression from the 2014 MRI. There is no signal in the cord. There is an osteophyte causing a mild mass effect and deformity of the anterior portion of the the cord. She has an appointment with [facility] in [facility] on February 01. She is not interested in obtaining an evaluation by [facility] at [facility]. She should wear a soft cervical collar when driving or if she is experiencing radiating pain until seen by the specialist. She should also no participate in any strenuous activity until cleared by the neurosurgeon. A copy of the CT cervical spine and MRI C spine reports were provided. She is waiting on a copy of the disc. Anticipating discharge today.
--- NOTE | 2018-01-21 15:21 | PN ---
NEUROLOGY PROGRESS REPORT: DATE OF SERVICE: 01/21/18 PRIMARY PROVIDER: KILO Hough CHIEF COMPLAINT: Numbness in the hands and lightheadedness. BRIEF HISTORY OF PRESENT ILLNESS: Ms. Kymberly Ramos is a 42-year-old female with history of cervical spondylosis with myelopathy, who presented to [facility] on 01/20/18 with symptoms of increased hand numbness, difficulty coordinating body movement, and lightheadedness in the setting of bike riding and increased dorsiflexion of the neck. She was evaluated for a possible ST- segment elevation on EKG and admitted for the hospital for cardiac workup. However, cardiac catheterization, did not reveal any coronary artery disease and it was thought that she may have some autonomic instability or/dysfunction causing the ST- segment elevation CA that has resolved. She had a CT of the neck that showed multilevel spinal canal narrowing with moderate spinal stenosis at C3-C4 due to an osteophyte complex. There was no evidence of traumatic cervical spine injury. The CT had also showed progression of degenerative spondylosis compared with the 2014 examination. The patient is waiting for the MRI study. SUBJECTIVE: The patient is resting comfortably. She actually has her regular clothes on and is walking around the hallway. She denied any hand weakness. She still has occasional, intermittent hand numbness mostly involving the left palm that resolves after shaking the hand or flexing or extending the elbow. She denied any neck pain. She denied any impairment in her bowel or bladder functions. I reviewed the history with her and she denied any neck trauma in the past. She does have a family history of arthritis. She denied ever playing any aggressive sports other than soccer, but she stated that she played it "poorly prepared." REVIEW OF SYSTEMS: She denied any chest pain, shortness of breath, or palpitation. She denied any fevers or chills. She denied any focal weakness or paresthesias. MEDICATIONS: 1. Acetaminophen 650 mg p.o. every 4 hours. 2. Albuterol 2.5 mg inhaled every 4 hours while awake as needed for wheezing. 3. Aspirin 81 mg daily. 4. Atorvastatin 20 mg daily. 5. Bupropion 300 mg daily. 6. Milk of magnesia 30 mg p.o. every 4 hours as needed. 7. Meclizine 25 mg by mouth every 8 hours as needed for dizziness. 8. Montelukast sodium 10 mg daily. 9. Sertraline 100 mg daily. 10. Tramadol 50 mg p.o. every 6 hours as needed for pain. PHYSICAL EXAM: Vitals: Temperature 98.4, heart rate 73, respiratory rate 16, oxygen saturation 100%, blood pressure 139/78. General: A well-nourished, well - developed, well-fit female, who is in excellent shape. She is alert and cooperative. Head is normocephalic without obvious abnormalities. No lymphadenopathy was noted. Spurling sign was negative. Eyes: Conjunctivae/ corneas are clear with no scleral icterus. Neck is supple and symmetrical with no carotid bruit. Lungs are clear to auscultation bilaterally and she has nonlabored breathing. Cardiovascular: Regular rate and rhythm with normal S1, S2. Extremities: Normal range of motion with no cyanosis. Skin: No skin lesions or lacerations. Psych: Affect is broad and concerned mood. Easy to establish rapport. Neurological Examination: Mental status awake, alert and oriented to person, place, and time, and general circumstances. Speech and language including expression, naming, repetition, and comprehension were assessed and found to be normal. Cranial Nerves: Pupils equal, round, and reactive to light and extraocular muscles are intact. There is no facial asymmetry. Tongue is midline and symmetrical bilaterally. Motor Examination: No abnormal movement or pronator drift. Neck flexion and extension 5/5. Shoulder range of motion is full. Shoulder abduction; elbow flexion, elbow extension; wrist flexion, wrist extension; finger flexion, extension, abduction ; hip flexion, abduction; knee flexion, extension; ankle dorsiflexion and plantar flexion were all checked and are 5/5 bilaterally. Reflexes right/left: Brachioradialis 2/2, biceps 2/2, triceps 2/2, patella 3/2, ankle 2/2, plantar mute/mute. Sensation is intact to light touch. Negative Tinel's sign at the wrist over the median nerve. Normal vibration measuring 15 seconds at the distal great toes bilaterally. Coordination: Normal [id number] and rapid alternating movement. Gait is narrow based, normal station and gait, no ataxia. LABORATORY DATA: WBC 6.8, hemoglobin 14.4, hematocrit 42, platelet count of 241. Sodium, potassium, chloride, and creatinine are all within normal range. ASSESSMENT AND RECOMMENDATION: Ms. Kymberly Ramos is a 42-year-old female with history of cervical spondylosis with myelopathy. Cervical spondylosis with myelopathy - CT of the cervical spine showed progression compared to study in 2014. She does have a large osteophyte complex at C3-C4 causing moderate-severe compression of the spinal cord. I also wonder if there is some signaling or syrinx in the cervical spine at that region, but this will need to be further evaluated with an MRI of the cervical spine without contrast. She should be going for the study this morning. The patient has scheduled an appointment to see Dr. Choco Zaragoza, neurosurgeon, at [facility] on 02/01/18. She prefers not to be evaluated by neurosurgery here in-house for now. However, I did inform her that if she does have signaling in the cord or syrinx due to osteophytic complex causing a spinal cord compression, I advised her to be to seek an opinion by our neurosurgeons here in [facility]. In addition, I provided her with the contact information for minimal invasive surgery in [place], [place] by the [facility]. She will contact them to establish an appointment. However, I do not think she would be a candidate for minimal invasive surgery due to the multi-level involvement. I did recommend minimizing any activity that may worsen her cervical spine disease. She is at risk of developing quadriplegia, which I did mention this to her today. She should wear a soft cervical collar at all times if possible. The patient appears slightly concerned, but reassurance was provided. In regards to the ST-segment elevation myocardial infarction, I do agree that given the lack of coronary artery disease on the angiogram, she may have had ST-segment elevation related to activation sympathetic pathway or some autonomic hyperstimulation related to the cervical spine problem. TIME SPENT: I spent a total of 25 minutes and greater than 50% of that was spent directly reviewing the medical chart, obtaining history, examining the patient, education and counseling, and discussing the possible treatment options. I answered all her questions to the best of my ability. She would like to go home and this could possibly be an option once the MRI is completed and depending on the results of the MRI. [id number]/[facility] #: [id number] VITALY
[2018-01-21 15:57] VITALS: BP 144/86
--- NOTE | 2018-01-23 04:54 | DS ---
CC: Dr. Dotson * DISCHARGE SUMMARY: DATE OF ADMISSION: 01/20/18 DATE OF DISCHARGE: 01/21/18 ATTENDING DURING THIS ADMISSION: Dr. Sridevi Booth. PRIMARY CARE PROVIDER: Dr. Ilsa Dotson. MY ATTENDING: Dr. Pereyra.* (DICTATED BY PINKY ROJAS NP) HOSPITAL COURSE: This is a 42-year-old female patient, who was recently hospitalized for chest pain and had positive troponins. She underwent a cardiac cath which was negative for coronary artery disease. At that time, it was determined she had coronary artery vasospasm which had caused her symptoms and was eventually discharged home with outpatient followup. The patient did some aggressive bike riding after her discharge and then started to feel some numbness and tingling down the left arm with associated left-sided chest pain. The patient came back to the emergency department for evaluation where her symptoms seem to be radicular in nature as opposed to true chest pain. 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 She was also reporting at that point some dizziness with associated weakness. The patient does have a past medical history of compression fracture of C4-C5. So it was not well understood at that point whether her dizziness was caused by her recent NSTEMI versus CVA versus other etiology. Dr. Castro from Neurology had evaluated the patient and stated her impression was this was aggravation of her compression fracture, possibly some spinal cord compression secondary to her chronic cervical disk disease. She did have an MRI of the C- spine while she was inpatient and Dr. Castro suggested Neurosurgery. MRI of the cervical spine showed advanced degenerative disk disease including loss of disk height, central canal stenosis with some broad-based disk osteophyte complex and herniations and calcifications of her disks from levels C3 through C7. The patient stated that she wanted to follow up with her neurosurgeon in [facility] as opposed to seeing Neurosurgery here in town or at [facility]. 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 Again, the patient wished to be discharged to follow up with Dr. Zaragoza, her physician at [facility], who specializes in Neurosurgery. The patient was discharged on 01/21/18 and told to follow up with Dr. Zaragoza immediately; however , the patient states she can only have an appointment on 02/01/18. Our staff will help coordinate expediting a more immediate appointment for neurosurgical evaluation for this patient this week. DISCHARGE DIAGNOSES: 1. Cervical disk disease with left-sided upper extremity radiculopathy. 2. Recent [id number] myocardial infarction secondary to coronary vasospasm. 3. History of anxiety and depression. DISCHARGE MEDICATIONS: Include: 1. Wellbutrin XL 300 mg daily. 2. Zocor 40 mg daily. 3. Tramadol 50 mg q. 6 hours as needed. 4. Zoloft 100 mg daily. 5. Nitroglycerin 0.4 mg sublingual q. 5 minutes as needed. 6. Multivitamin one tablet daily. 7. Singulair 10 mg daily. 8. Diltiazem 120 mg daily. 9. Aspirin 81 mg daily. 10. Ventolin inhaler two puffs q. 4 hours as needed. REVIEW OF SYSTEMS: On the day of discharge, the patient states she has no headache and no dizziness at this time. 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 She does have full range of motion. She has some decreased sensation in the fingertips on the affected side. Cardiovascular: She is not complaining of any chest pain or any shortness of breath. She has no nausea, no vomiting, no abdominal pain, no arthralgias or myalgias and no further constitutional complaints. PHYSICAL EXAMINATION: On the day of discharge, vital signs, blood pressure 144/ 86, heart rate 98, temperature 99.2, respiratory rate 20, O2 saturation 99% on room air. HEENT: The patient is atraumatic, normocephalic. PERRLA with nonicteric sclerae. Neck is supple. Nontender. No JVD noted. No carotic bruit auscultated. No thyromegaly appreciated. Cardiovascular: S1, S2 present with no murmurs, gallops, or rubs. Rate and rhythm are regular. Lungs are clear bilaterally to auscultation with no wheezing, rhonchi, or rales. Abdomen is soft, nontender, and nondistended. Positive bowel sounds in all 4 quadrants. was deferred. Musculoskeletal: There is no clubbing, no cyanosis , and no edema. She has +2 distal pulses palpable bipedal. On the left upper extremity, on the affected side, she does have intact sensation, some decreased range of motion. 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 No other neurologic focalities noted. Psychiatric: She appears anxious but cooperative and appropriate. DIAGNOSTIC STUDIES/LAB DATA: WBC 6.8, RBC 4.87, hemoglobin 14.4, hematocrit 42 , platelets 241. Sodium 139, potassium 4.0, chloride 103, CO2 of 29. BUN 15, creatinine 0.81. GFR 77.5. Glucose 104. Lactic acid 1.3. Calcium 9.4. Troponins are negative at 0.00 and 0.00. MRI as described above. DISPOSITION: Agree to discharge the patient with immediate followup with Neurosurgery at [facility] with Dr. Zaragoza. She should also see Dr. Dotson, her primary care provider in the next 1 to 2 weeks. Follow up with Cardiology as needed per her previous discharge. DIET: She should have a heart-healthy diet. RESTRICTIONS ON ACTIVITY: The patient was told not to bike, no heavy lifting, no strenuous exercise, and no driving until evaluated by Neurosurgery. The patient stated her understanding. Her was also present at the time of discharge and was in agreement with the plan and also understood instructions noted. The patient was discharged in stable condition. All questions were answered. PINKY ROJAS NP [id number]/CPS #: [id number] VITALY
== END 2018-01-21 16:30 | disposition home or self-care (01) ==
LOC: ED 06:31 → MEDTELE 13:57
PROVIDERS: ADMIT Internal Medicine; ATTEND Internal Medicine
DX: M50.30 Other cervical disc degeneration, unspecified cervical region (principal); M54.12 Radiculopathy, cervical region; M47.12 Other spondylosis with myelopathy, cervical region; Z79.82 Long term (current) use of aspirin; R42 Dizziness and giddiness; R51 Headache; R06.02 Shortness of breath; R20.0 Anesthesia of skin
CPT/HCPCS: 36415; 70450; 72125; 72141; 80048; 80053; 81003; 81015; 83605; 84484; 85025; 85610; 85730; 87086; 93005; 96374; 99285; A9270-GY; G0378